=== PATIENT | male | born 1950 | race Caucasian/White ===

== ENCOUNTER 2019-02-21 05:59 | Day surgery (SDC) | payer MEDICARE, BC ==
[~2019-02-21] VITALS: Ht 172.7 cm; Wt 75.7 kg
[~2019-02-21 05:59] MED LIST: ASCO500 PO; BP PILL; FLUT.05NI; FLUT.05NI INH; MULT50L PO; OMEG1CAP30; OMEGA 3-6-9 PO; PRINZIDE PO; [UNRECOGNIZED DRUG - OTHER] PO
--- NOTE | 2019-02-21 06:46 | NUR ---
Ambulatory in Day Surgery History, Chart, Medications and Allergies reviewed before start of procedure. Lungs clear T/O to Auscultation. Patient confirms NPO status and agrees with scheduled surgery. Pre-Op teaching done. Pt verbalizes understanding. Patient States Post-Procedure ride home has been arranged.
--- NOTE | 2019-02-21 10:54 | NUR ---
PT TO STEPDOWN. AWAKE, CONVERSING WITH STAFF. C/O MILD DISCOMFORT RATED 1/10 TO SURGICAL SITE. NO NAUSEA.
--- NOTE | 2019-02-21 11:16 | NUR ---
REVIEWED DISCHARGE INSTRUCTIONS WITH PATIENT AND , BOTH OF WHOM VERBALIZE UNDERSTANDING OF ALL.
--- NOTE | 2019-02-21 12:07 | NUR ---
PT HAVING EPISODES OF BRADYCARDIA IN MID TO HIGH 40'S. ASYMPTOMATIC. HAS HX OF BRADYCARDIA IN CHART. HR IN LOW 40'S DURING OR AT TIMES. NAUSEA CONTINUES BUT PT DOES NOT DESIRE MEDICATION - REQUESTS TO CONTINUE RESTING. WILL MONITOR.
--- NOTE | 2019-02-21 12:54 | NUR ---
PT SLEPT X 30 MINUTES AND STATES HE FEELS MUCH BETTER AND DESIRES TO GO HOME. STOOD AT EDGE OF BED AND DRESSED WITH ASSISTANCE OF - TOLERATED ACTIVITY WITHOUT DIFFICULTY. IV DC TIP INTACT AND PATIENT DC HOME VIA WC WITH TO DRIVE HIM. DC INSTRUCTIONS WERE REVIEWED WITH PATIENT AND PRIOR TO DC AND BOTH VERBALIZED UNDERSTANDING OF ALL.
== END 2019-02-21 22:40 | disposition home or self-care (01) ==
LOC: ORSCMMR 05:59 → ORD 07:30 → ORSCMMR 22:40
PROVIDERS: Surgery
PROC: 8E0W4CZ Robotic Assisted Procedure of Trunk Region, Percutaneous Endoscopic Approach (ICD-10-PCS; principal; 2019-02-21 07:30)
PROC: 0YU54JZ Supplement Right Inguinal Region with Synthetic Substitute, Percutaneous Endoscopic Approach (ICD-10-PCS; principal; 2019-02-21 07:30)
DX: K40.90 Unilateral inguinal hernia, without obstruction or gangrene, not specified as recurrent (principal); I12.9 Hypertensive chronic kidney disease with stage 1 through stage 4 chronic kidney disease, or unspecified chronic kidney disease; N18.9 Chronic kidney disease, unspecified
CPT/HCPCS: 49650; S2900; C1781; J0690; J1100; J1885; J2370; J2405; J2704; J3010; J7120

== ENCOUNTER 2021-09-16 07:27 | Day surgery (SDC) | payer OTHER ==
[~2021-09-16] VITALS: Ht 172.7 cm; Wt 73.3 kg
[2021-09-16] MEDS ORDERED: L-ARGININE350 MG (07:55)
[2021-09-16] MEDS ORDERED: GLUC500 (07:56)
[2021-09-16] MEDS ORDERED: CREATINE100 GM (07:56)
[2021-09-16] MEDS ORDERED: PRE PROTEIN (07:56)
== END 2021-09-16 09:28 | disposition home or self-care (01) ==
LOC: ORSCSDS 07:27
PROVIDERS: Internal Medicine Gastroenterology
PROC: 0DBP8ZX Excision of Rectum, Via Natural or Artificial Opening Endoscopic, Diagnostic (ICD-10-PCS; principal; 2021-09-16 08:45)
DX: Z12.11 Encounter for screening for malignant neoplasm of colon (principal); Z86.010 Personal history of colon polyps; K62.1 Rectal polyp; K64.8 Other hemorrhoids; K57.30 Diverticulosis of large intestine without perforation or abscess without bleeding; Z79.899 Other long term (current) drug therapy
CPT/HCPCS: 88305; J2704; J7120